=== PATIENT | male | born 1995 | race Caucasian/White ===

== ENCOUNTER 2020-05-31 04:25 | Emergency (ER) | payer SELFPAY ==
[~2020-05-31] VITALS: Ht 188 cm; Wt 95.3 kg
--- NOTE | 2020-05-31 04:45 | NUR ---
PT TAKEN TO BED 7
--- NOTE | 2020-05-31 04:51 | NUR ---
Dr. Isaacs examining patient.
--- NOTE | 2020-05-31 04:54 | NUR ---
24 Y/O MALE PRESENTED TO ED C/O LT SHOULDER PAIN X 6 DAYS . PT DENIES TRAUMA &/OR INJURY IN LT SHOULDER. 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 PT +ROM , +CMS +RADIAL PULSES. PT RESTING IN BED, LOCKED AND IN LOWEST POSITION ,HOB ELEVATED, SIDE RAIL X1. VSS. PMH: DENIES AX: MARIBEL
[2020-05-31] MEDS ORDERED: IBUPROFEN 400 MG TAB ONE (05:08)
[2020-05-31] MEDS ORDERED: IBUPROFEN 400 MG TAB PO ONE (05:10)
--- NOTE | 2020-05-31 05:15 | NUR ---
pt declined sling at this time.
[2020-05-31 05:16] VITALS: BP 125/86
--- NOTE | 2020-05-31 05:16 | NUR ---
Patient discharged with v/s stable. Written and verbal after care instructions given and explained. Patient verbalized understanding. Ambulatory with steady gait. All questions addressed prior to discharge. Advised to follow up with PMD.
== END 2020-05-31 05:16 | disposition home or self-care (01) ==
LOC: MED 04:25
DX: M25.512 Pain in left shoulder (principal); Z91.018 Allergy to other foods
CPT/HCPCS: 99282